=== PATIENT | male | born 1960 | race Caucasian/White ===

== ENCOUNTER 2016-10-11 00:22 | Day surgery (SDC) | payer OTHER ==
[2016-10-11] VITALS (11 sets, daily range): BP systolic 124–143; BP diastolic 75–114; PULSE 95–127; RESP 13–21; O2SAT 96–100
[~2016-10-11 00:22] MED LIST: CYA1000I IM; DOCU240C41 PO; FUR20 PO; LISI2.5T PO; METO100T3 PO; OXYC5TAB72 PO; RIVA20TA PO
[2016-10-11 11:58] LABS: BASOPHILS % (AUTO) 0.6 % (0-3); EOSINOPHILS % (AUTO) 2.4 % (0-5); MONOCYTES % (AUTO) 11.2 % (4-12); Mean Corpuscular Hemoglobin 28.7 pg (27.0-35.0); Mean Corpuscular Volume 89.4 fL (81-100); NEUTROPHILS % (AUTO) 51.3 % (40-74); Platelet Count 172 bil/L (150-400)
[2016-10-11] MEDS ORDERED: CYA1000I IM (12:36)
[2016-10-11] MEDS ORDERED: FERR324T2 PO (12:37)
[2016-10-11 12:42] LABS: INR 1.33 ratio
--- NOTE | 2016-10-11 13:00 | NUR ---
Admitted today for an SVT ablation today by Dr Townsend. Pt rhythm by 12 lead is ? AF with trigemny Heart rate is in the 120's. Diastolic BP is high. B/P Information passed onto Dr Townsend via service tech/welder. Case is currently on hold until the 1st case is finished in landscaping and groundskeeping laborer 3.
[2016-10-11] MEDS ORDERED: 0.9% Sodium Chloride 1,000 ML ONE (14:00)
[2016-10-11] MEDS ORDERED: Heparin 1,000 Units/500 mL NS Premix IV ONE (14:00)
[2016-10-11] MEDS ORDERED: Heparin 1,000 Unit/mL 10 mL Inj ONE ×2 (14:01→15:14)
--- NOTE | 2016-10-11 14:30 | NUR ---
Dr Townsend post discussion with Patient has found patient to not have been clear on his dosing of Xarelto. He has missed a dose of Xarelto. Plan is to do a SHASHI by Dr Osullivan- prior to the ablation today, in laborer syrup machine #3. Pt has had the procedure/SHASHI reviewed today by Dr Brown - permit has been signed. Pt is off to laborer syrup machine.
[2016-10-11] MEDS ORDERED: fentaNYL-PF 50 mCg/mL 2 mL Inj ONE ×3 (14:36→15:55)
[2016-10-11] MEDS ORDERED: 0.9% Sodium Chloride 1,000 ML IV SCH (14:45)
[2016-10-11] MEDS ORDERED: Ondansetron 2 mg/mL 2 mL Inj IVPUSH PRN (17:15)
[2016-10-11] MEDS ORDERED: HYDROcodone-APAP 5-325 mg Tablet PO PRN (17:15)
--- NOTE | 2016-10-11 18:33 | NUR ---
[facility] POST A FLUTTER ABLATION ASSUMED CARE OF PT AT 1525 WHEN HE RETURNED FROM THE [facility]MENT [facility]PERATOR. RIGHT GROIN WITH VENOUS STICKS X3 HAS BEEN SOFT, NON TENDER, NO BLEEDING NOTED. PT IS AWAKE AND ALERT, TAKING PO FLUIDS AND MEAL. POST ABLATION EKG OBTAINED. BED REST UNTIL 2129. WILL TRANSFER IN INPT ROOM WHEN AVAILABLE TO CONTINUE LAST HALF OF RECOVERY. Addendum: 10/11/16 at 1907 by FLAKO WARD RN CLARIFICATION: ASSUMED CARE OF PT AT 1725.
--- NOTE | 2016-10-11 19:34 | NUR ---
[facility] TRANSFER PT AND HIS NURSING CARE WERE TRANSFERRED TO ROOM 2009 AT 1930. REPORT AND RN TO RN BEDSIDE HANDOFF WAS DONE WITH ROSENDO Quick RN. TELE ON.
--- NOTE | 2016-10-11 23:48 | NUR ---
Observation/Discharge Pt arrived to [facility] from [facility] around 1929. Pt A&Ox3 and currently on bedrest until 2129. Right groin site soft non tender with no hematoma noted, Distal pulses noted. Pt will be DC'ing this evening, per report from [facility] K[facility], @ 220. Pt having increasing ectopy with PVC's about 14 a minute. MD notified and no new orders given and stated that pt should still be able to DC as these PVC's are "not that many". Pt off bedrest and walking around 2144. Pt denies dizziness, but states feeling a little weak. Pt ambulated around room several times and began to feel less weak. pt Mother here to pick him up and take him home. DC paperwork completed by [facility] and reviewed by me with Pt. IV's DC'd intact and all belongings sent with pt.
--- NOTE | 2016-10-12 05:03 | PROCED ---
[address] [address] PROCEDURE NOTE PATIENT: ANGELITA GONSALEZ : 1960 MR#: [id number] ADMIT: 10/11/2016 JOB ID: [id number] DATE OF SERVICE: 10/11/2016 PREOPERATIVE DIAGNOSIS(ES): Highly symptomatic rapid atrial flutter. POSTOPERATIVE DIAGNOSIS(ES): Sinus rhythm. PROCEDURE PERFORMED: 1. Comprehensive electrophysiology study with left atrial pacing recording via the coronary sinus catheter. 2. Three-dimensional electroanatomic mapping using the CARTO 3 System. 3. Atrial flutter ablation (cavotricuspid isthmus ablation; atrial ablation). 4. Fluoroscopy. SURGEON: Print Washer: Landon Townsend MD, electrophysiology attending. AUTO PARTS SALESPERSON: 1. Cecil Meraz. 2. Marsha Zelaya. 3. Reji Murphy. ANESTHESIA: Bolus dosing of Versed and fentanyl were utilized for appropriate level of sedation. INDICATION: The patient is a pleasant 55-year-old man with LV systolic dysfunction felt to be secondary to rapid difficult to control atrial flutter. After discussion of risks and benefits of catheter based mapping and ablation, he opted to proceed. Of note, the patient skipped two doses of his anticoagulant; as such, I recommended and discussed with him the risks and benefits of transesophageal echocardiography prior to the ablation. He wishes to proceed. PROCEDURAL DESCRIPTION: Following informed consent, the patient was taken to the EP laboratory in a fasting nonsedated state, where he was prepped in the usual sterile fashion. He underwent a preprocedural transesophageal echocardiogram by Dr. Osullivan, confirming lack of intracardiac thrombus. Please see separate dictated report for the details of that procedure. The right inguinal region was infiltrated with 1% lidocaine. Then, using modified Seldinger technique, one 8 and two 7-Mongolian sheaths were inserted in right femoral vein. Under fluoroscopic guidance, a deflectable decapolar catheter was advanced to the coronary sinus with the most proximal bipolar at the os of the sinus. A 20 pole Livewire catheter was used to encircle the tricuspid anulus. A J curve irrigated SmartTouch ablation catheter was brought to the field and advanced to the right atrium. It was placed at the cavotricuspid isthmus at the six o'clock position. The patient was in atrial flutter at onset of the case. This was counterclockwise typical flutter. Treatment was undertaken from the cavotricuspid isthmus showing a post pacing interval minus tachycardia cycle length of 0 msec. Taken together, this was consistent with an isthmus dependent flutter. A three-dimensional electroanatomic map of the right atrium, tricuspid anulus and cavotricuspid isthmus was created using the using the CARTO 3 System. A linear series of ablations was performed from the ventricular to the IVC aspect of the cavotricuspid isthmus. In the process of doing this the patient's flutter broke to sinus rhythm. Pacing was undertaken from the coronary sinus os, monitoring the atrial activation pattern on the Livewire catheter. Medial to lateral conduction was intact. High voltage electrogram targeted and ultimately medial to lateral block was achieved. Lateral to medial was confirmed. A 20-30 minute waiting period was undertaken, during which bidirectional block was confirmed. During the course of this study, we did complete a comprehensive electrophysiology study with right atrial pacing recording, right ventricular and His bundle recording, left atrial pacing via the coronary sinus catheter. All catheters and sheaths were removed. Manual pressure was held for hemostasis. The patient was transferred to the ICU for monitoring, bed rest and discharge. COMPLICATIONS: None. ESTIMATED BLOOD LOSS: FINDINGS: 1. Baseline rhythm is atrial flutter. Post ablation, he is in sinus rhythm with RR interval 666 msec, OH 206 msec, QRS 121 msec, QT 396 msec. 2. Intracardiac intervals: AH interval 135 msec, HV 50 msec. 3. Retrograde conduction: VA conduction is concentric and is one-to-one down to 300 msec. 4. Typical counterclockwise isthmus flutter as described above status post ablation. Bidirectional block is achieved, specifically, transisthmus time is 174 msec in lateral to medial direction and 178 msec in medial to lateral direction. IMPRESSION: Successful cavotricuspid isthmus ablation with typical counterclockwise atrial flutter. PLAN: 1. Bed rest x4 hours. 2. Resume Xarelto 20 mg p.o. daily immediately, and for at least one month. 3. Reduce metoprolol succinate to 50 mg twice daily. 4. Follow up with Anibal Donahue in 3-[address] Henry thereafter. ATTENDING STATEMENT: Landon Townsend MD, electrophysiology attending, was present for and supervised/performed all aspects of this procedure.
--- NOTE | 2016-10-12 15:22 | DRSVH ---
Formerly [facility] [address] [place] [address] Echocardiogram Report Name: ANGELITA GONSALEZ Date: 10/11/2016 Height: 74 in Hospital Exam Location: [facility] Weight: 250 lb Gender: Male BSA: 2.4 m2 : 1960 Age: 55 yrs Reason For Study: Atrial flutter Ordering Physician: Performed By: Brent Han Interpretation Summary 1. At least moderately reduced left ventricular systolic function. The right ventricular systolic function also appears reduced. 2. Trivial pericardial effusion with some organized material (possible thrombus) noted.. 3. No evidence for thrombus in the sampled segments of the left atrium or left atrial appendage. Procedure: Informed consent for Transesophageal Echocardiogram, and use of a contrast agent as needed, was obtained prior to the procedure. The patient was brought to the cardiac catheterization lab in a fasting state. IV concious sedation was administered using versed and fentanyl. The patient tolerated the procedure well without evidence of orophangeal or esophageal trauma. A 2D transesophageal echocardiogram with spectral and color flow Doppler was performed. There were no complications. Left Ventricle: The left ventricular function is at least moderately reduced. Right Ventricle: Borderline right ventricular enlargement. The systolic function appears reduced. Atria: No thrombus is appreciated in the sampled segments of the left atrial appendage or atrium. There is probable thrombus appreciated in the pericardial space near the tip of the left atrial appendage. Mitral Valve: There is mild to moderate mitral regurgitation. Aortic Valve: The aortic valve is trileaflet. The aortic valve opens well. Sclerotic changes are present. Tricuspid Valve: The tricuspid valve leaflets are thin and pliable. There is mild to moderate tricuspid regurgitation. Pulmonic Valve: The pulmonic valve is not well seen, but is grossly normal. Pericardium/ Pleura: There is a trivial pericardial effusion noted. Reading Physician:03:22 PM
== END 2016-10-11 22:50 | disposition home or self-care (01) ==
LOC: SOUO 00:22 → PCC 19:31 → SOUO 22:50
PROVIDERS: ATTEND Internal Medicine Cardiovascular Disease
DX: I48.3 Typical atrial flutter (principal); E03.9 Hypothyroidism, unspecified; I34.0 Nonrheumatic mitral (valve) insufficiency; I51.9 Heart disease, unspecified; G47.33 Obstructive sleep apnea (adult) (pediatric); Z79.01 Long term (current) use of anticoagulants
CPT/HCPCS: 36415; 80048; 85025; 85610; 93005; 93613; 93621; 93653; 99152; 99153; C1730; C1731; C1732; C1893; C8925; J1644; J2250; J3010